=== PATIENT | female | born 1995 ===

== ENCOUNTER 2018-09-10 20:16 | Emergency (ER) | payer SELFPAY ==
[2018-09-10 20:32] VITALS: BMI 46.7
[2018-09-10 20:33] VITALS: RESP 18; TEMP 98.3
[2018-09-10] MEDS ORDERED: Sodium Chloride 0.9% 1,000 ML IV STA (20:49)
--- NOTE | 2018-09-10 20:53 | ED PDOC ---
Arrival/HPI - General Chief Complaint: Abdominal Pain Time Seen by Provider: 09/10/18 20:26 Historian: Patient - History of Present Illness Narrative History of Present Illness (Text): 09/10/18 20:49 22 year old female, with no significant past medical history, presents to the emergency department with lower abdominal pain, for 3-4 days. Patient informs it feels like there is a knot causing her intermittent pain. Patient informs of associated nausea and vomiting. Patient also informs of some diarrhea. Patient states her last menstruation was about 1 month ago. Patient denies any fevers, chills, dysuria, chest pain, shortness of breath, headache, dizziness, or any other complaint. Time/Duration: < week (3-4 days) Symptom Onset: Gradual Symptom Course: Unchanged, Intermittent Activities at Onset: Light Context: Home Past Medical History - Provider Review Nursing Documentation Reviewed: Yes - Infectious Disease Hx of Infectious Diseases: None - Pulmonary Hx Asthma: Yes - Psychiatric Hx Substance Use: Yes - Anesthesia Hx Anesthesia: No Hx Anesthesia Reactions: No Hx Malignant Hyperthermia: No Family/Social History - Physician Review Nursing Documentation Reviewed: Yes Family/Social History: No Known Family HX Smoking Status: Current Some Days Smoker Hx Alcohol Use: Yes Hx Substance Use: Yes Substance used: marijuana Allergies/Home Meds Allergies/Adverse Reactions: Allergies No Known Allergies Allergy (Verified 03/28/16 17:48) Home Medications: Home Meds Medication Instructions Recorded Confirmed No Known Home Med 09/10/18 09/10/18 Review of Systems - Physician Review All systems were reviewed & negative as marked: Yes - Review of Systems Constitutional: absent: Fevers, Night Sweats Respiratory: absent: SOB Cardiovascular: absent: Chest Pain Gastrointestinal: Abdominal Pain, Diarrhea, Nausea, Vomiting Neurological: absent: Headache, Dizziness Physical Exam Vital Signs Reviewed: Yes Vital Signs Temp Pulse Resp BP Pulse Ox 09/10/18 20:32 98.3 F 98 H 18 153/116 H 100 Temperature: Afebrile Blood Pressure: Hypertensive Pulse: Tachycardic Respiratory Rate: Normal Appearance: Positive for: Well-Appearing, Non-Toxic, Comfortable, Other (Patient is morbidly obese) Pain Distress: None Mental Status: Positive for: Alert and Oriented X 3 - Systems Exam Head: Present: Atraumatic, Normocephalic Pupils: Present: PERRL Extroacular Muscles: Present: EOMI Conjunctiva: Present: Normal Mouth: Present: Moist Mucous Membranes Neck: Present: Normal Range of Motion Respiratory/Chest: Present: Clear to Auscultation, Good Air Exchange. No: Respiratory Distress, Accessory Muscle Use Cardiovascular: Present: Regular Rate and Rhythm, Normal S1, S2. No: Murmurs Abdomen: Present: Tenderness (Minimal superpubic tenderness). No: Distention, Peritoneal Signs Back: Present: Normal Inspection Upper Extremity: Present: Normal Inspection. No: Cyanosis, Edema Lower Extremity: Present: Normal Inspection. No: Edema Neurological: Present: GCS=15, CN II-XII Intact, Speech Normal Skin: Present: Warm, Dry, Normal Color. No: Rashes Psychiatric: Present: Alert, Oriented x 3, Normal Insight, Normal Concentration Medical Decision Making ED Course and Treatment: 09/10/18 20:55 Impression: 22 year old female presents with lower abdominal pain. Plan: -- CMP, Lipase, Mg -- CBC, Platelets -- Tylenol -- Zofran -- Urinalysis -- Reassess and disposition Prior Visits: Notes and results from previous visits were reviewed. Progress Notes: 09/11/18 00:37 US Obstetrical, Complete <14 weeks CLINICAL HISTORY: Pelvis pain TECHNIQUE: Transvaginal and transabdominal imaging of the maternal pelvis and a <14 week gestation with image documentation. COMPARISON: None provided. FINDINGS: GESTATION: A small intrauterine gestational sac is noted measuring 5.8 x 5.7 x 4.5 mm in size which is out of range for age estimation. Short-term reevaluation in 7-10 days is recommended. At this time, there is no detectable pole or cardiac activity. ENDOMETRIUM: There is endometrial thickening demonstrated which measured 2.0 cm in AP dimension. This is likely compatible with a decidual reaction. UTERUS: Unremarkable. No myometrial mass. CERVIX: Closed. Unremarkable. OVARIES: Not visualized. FREE FLUID: No free fluid. IMPRESSION: Small intrauterine gestational sac as described above. This is out of range for accurate age estimation. Short-term reevaluation in 7-10 days recommended. Endometrial thickening may likely compatible with decidual reaction. Neither ovary was identified. 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 dr jeronimo. susepct early preg. return precautiosn advied. 09/11/18 03:01 - Scribe Statement The provider has reviewed the documentation as recorded by the Scribe Adrian Rawls Provider Scribe Attestation: All medical record entries made by the Scribe were at my direction and personally dictated by me. I have reviewed the chart and agree that the record accurately reflects my personal performance of the history, physical exam, medical decision making, and the department course for this patient. I have also personally directed, reviewed, and agree with the discharge instructions and disposition. Disposition/Present on Arrival - Present on Arrival Any Indicators Present on Arrival: No History of DVT/PE: No History of Uncontrolled Diabetes: No Urinary Catheter: No History of Decub. Ulcer: No History Surgical Site Infection Following: None - Disposition Have Diagnosis and Disposition been Completed?: Yes Diagnosis: Threatened miscarriage Disposition: HOME/ ROUTINE Disposition Time: 01:00 Condition: STABLE Discharge Instructions (ExitCare): Threatened Miscarriage (DC) Additional Instructions: follow up with obgyn in next 48 hours return to any er with worsening. [facility] - Follow up with primary Hakeem Jeronimo MD [Staff Provider] - Follow up with primary FAMILY PROVIDER,NO [Primary Care Provider] - Follow up with primary Forms: [employer] (Mont[place]grin)
[2018-09-10 21:16] LABS: BASO # 0.02 K/mm3 (0.0-2.0); BASO % 0.2 % (0.0-3.0); EOS # 0.2 (0.0-0.7); EOS % 1.6 % (1.5-5.0); HEMOGLOBIN 14.1 g/dL (12.0-16.0); LYMPH # 2.7 (1.2-3.4); LYMPH % 25.4 % (22.0-35.0); MEAN CELL VOLUME 88.9 fl (80.0-105.0); MEAN CORPUSCULAR HGB CONC 33.7 g/dl (31.0-37.0); MEAN PLATELET VOLUME 10.5 fl (7.0-11.0); MONO # 0.6 (0.1-0.6); MONO % 5.8 % (1.0-6.0); RBC 4.7 10^6/uL (3.5-6.1); RED CELL DISTRIBUTION WIDTH 12.5 % (11.5-14.5); WHITE BLOOD COUNT 10.6 10^3/uL (4.5-11.0)
[2018-09-10 21:17] LABS: URINE BILIRUBIN NEGATIVE (NEGATIVE); URINE BLOOD NEGATIVE (NEGATIVE); URINE GLUCOSE (UA) NEGATIVE (NEGATIVE); URINE LEUKOCYTE ESTERASE NEGATIVE Leu/uL (NEGATIVE); URINE PROTEIN TRACE mg/dL (<30 mg/dL); URINE UROBILINOGEN 0.2 E.U./dL (<1 E.U./dL)
[2018-09-10 21:18] LABS: HCG,QUALITATIVE URINE POSITIVE (NEGATIVE); URINE APPEARANCE SLIGHT-CLOUDY (CLEAR); URINE COLOR YELLOW (YELLOW)
[2018-09-10 21:22] LABS: URINE BACTERIA FEW /hpf; URINE RBC 0 - 2 /hpf (0-2)
[2018-09-10 21:25] LABS: INR 1.18; PARTIAL THROMBOPLASTIN TIME 35.3 Seconds (26.9-38.3); PROTHROMBIN TIME 13.1 SECONDS (9.4-12.5)
[2018-09-10 21:27] LABS: ALB/GLOB RATIO 1.4 (1.1-1.8); ALBUMIN 4.4 g/dL (3.0-4.8); ALT/SGPT 32 U/L (7-56); AST/SGOT 29 U/L (14-36); BLOOD UREA NITROGEN 10 mg/dL (7-21); CALCIUM 9.3 mg/dL (8.4-10.5); GFR NON-AFRICAN AMERICAN > 60; LIPASE 102 U/L (23-300)
[2018-09-11 01:00] VITALS: BP 133/75; PULSE 90; O2SAT 98
--- NOTE | 2018-09-11 13:30 | US ---
Date of service: 09/10/2018 HISTORY: Abdominal pain, by history . LMP 08/08/2018. COMPARISON: None available. TECHNIQUE: Standard protocol for this study/examination. FINDINGS: UTERUS: Measures 4.7 x 5.4 x 8.4 cm. Normal in size and appearance. No fibroid or other mass lesion seen. ENDOMETRIUM: Measures 20.1 mm in diameter. Mean gestational sac measurement 5 mm. Out of range. Below threshold for calculation of reliable gestational age. CERVIX: No cervical abnormality identified. RIGHT OVARY: Not visible LEFT OVARY: Not visible FREE FLUID: No significant free fluid noted. OTHER FINDINGS: None. IMPRESSION: Saclike structure in the endometrial canal. No visible pole or yolk sac identified. Likely early gestation. Concordant findings (preliminary report) provided by [employer].
== END 2018-09-11 01:02 | disposition home or self-care (01) ==
LOC: ED 20:16
DX: O20.0 Threatened abortion (principal)
CPT/HCPCS: 76817; 80053; 81001; 81025; 83690; 83735; 84702; 84703; 85025; 85610; 85730; 96360; 99284; J7030